=== PATIENT | male | born 1950 | race Caucasian/White ===

== ENCOUNTER 2016-10-02 07:41 | Outpatient (CLI) | payer MEDICARE, OTHER ==
[2016-10-02 10:55] LABS: PSA FREE 0.5 ng/mL (0.16-2.81); PSA TOTAL 1.4 ng/mL (0.000-2.000)
[2016-10-02 11:05] LABS: ALBUMIN/GLOBULIN RATIO 1.3 (1.0-2.2); BILIRUBIN,TOTAL 0.8 mg/dL (0.2-1.0); BUN - BLOOD UREA NITROGEN 16 mg/dL (6-20); CALCIUM 9.8 mg/dL (8.5-10.3); CARBON DIOXIDE - CO2 28 mmol/L (21-32); CHLORIDE 102 mmol/L (101-111); CHOL/HDL RATIO 4.9 (<5.0); CHOLESTEROL 212 mg/dL; CREATININE 0.9 mg/dL (0.6-1.2); GFR - MDRD 84 (>89); GLUCOSE 94 mg/dL (70-100); HDL CHOLESTEROL 43 mg/dL; LDL/HDL RATIO 3.1 (<3.6); POTASSIUM 4.3 mmol/L (3.5-5.0); SODIUM 137 mmol/L (135-145); TOTAL PROTEIN 8.1 g/dL (6.7-8.2); TRIGLYCERIDES 177 mg/dL; VLDL CHOLESTEROL 35 mg/dL
== END 2016-10-02 23:59 ==
LOC: LAB.R 07:41
PROVIDERS: ATTEND Internal Medicine
DX: N40.2 Nodular prostate without lower urinary tract symptoms (principal); K21.9 Gastro-esophageal reflux disease without esophagitis; E78.2 Mixed hyperlipidemia; Z79.899 Other long term (current) drug therapy
CPT/HCPCS: 80053; 80061; 84154; 84443; 85025

== ENCOUNTER 2016-10-03 13:22 | Outpatient (CLI) | payer MEDICARE, OTHER ==
[2016-10-03 13:49] LABS: BASOPHILS % (AUTO) 0.4 %; EOSINOPHILS # (AUTO) 0.1 10^3/uL (0.0-0.7); EOSINOPHILS % (AUTO) 1.6 %; HCT - HEMATOCRIT 48.4 % (42.0-52.0); HGB - HEMOGLOBIN 16.5 g/dL (14.0-18.0); LYMPHOCYTES # (AUTO) 2.1 10^3/uL (1.5-3.5); LYMPHOCYTES % (AUTO) 28.1 %; MEAN CORPUSCULAR HEMOGLOBIN 29.9 pg (27.0-31.0); MEAN CORPUSCULAR HGB CONC 34.2 g/dL (32.0-36.0); MEAN CORPUSCULAR VOLUME 87.6 fL (80.0-94.0); MEAN PLATELET VOLUME 7.7 fL (7.4-11.4); MONOCYTES # (AUTO) 0.4 10^3/uL (0.0-1.0); MONOCYTES % (AUTO) 5.8 %; NEUTROPHILS # (AUTO) 4.8 10^3/uL (1.5-6.6); NEUTROPHILS % (AUTO) 64.1 %; RED BLOOD COUNT 5.53 10^6/uL (4.70-6.10); RED CELL DISTRIBUTION WIDTH 13.2 % (12.0-15.0); UNCORRECTED WHITE BLOOD COUNT 7.4 x10^3/uL; WHITE BLOOD COUNT 7.4 x10^3/uL (4.8-10.8)
== END 2016-10-03 13:23 | disposition home or self-care (01) ==
LOC: LAB 13:22
PROVIDERS: ATTEND Internal Medicine
DX: N40.2 Nodular prostate without lower urinary tract symptoms (principal); E78.2 Mixed hyperlipidemia; K21.9 Gastro-esophageal reflux disease without esophagitis; Z79.899 Other long term (current) drug therapy
CPT/HCPCS: 36415; 85025

== ENCOUNTER 2020-07-07 08:51 | Outpatient (CLI) | payer MEDICARE, OTHER ==
--- NOTE | 2020-07-07 11:07 | CT Report ---
PROCEDURE: Low Dose Lung Cancer Screen INDICATIONS: HX OF SMOKING TECHNIQUE: Noncontrast low-dose 5 mm thick sections acquired from the pulmonary apices to the posterior costophr enic angles. 7 mm thick coronal and sagittal MIP reformats were then acquired. For radiation dose r eduction, the following was used: automated exposure control, adjustment of mA and/or kV according t o patient size. COMPARISON: None. FINDINGS: Image quality: Excellent. Lungs and pleura: There are two subpleural nodules in the posterior right upper lobe (series 4 image 114), measuring 5-7 mm. The smaller of these is partially calcified superiorly. No other pulmonary n odule or mass demonstrated. Pleural spaces are clear. Mediastinum: Normal heart size. No pericardial effusion. There is also coronary atherosclerosis. Smal l hiatal hernia with patulous esophagus. No threshold enlarged mediastinal or hilar lymph node. Brittnee l caliber thoracic aorta and minimal biliary trunk. Bones and chest wall: No suspicious lytic or blastic osseous lesion in the chest wall. No threshold e nlarged axillary or supraclavicular lymph node in the [id number]. Abdomen: Visualized upper abdomen solid organs and bowel loops appear normal in the absence of contr ast. IMPRESSION: Two small subpleural nodules in the posterior right upper lobe. Follow-up in 12 months to coincide th the annual of the screening CT of the chest is recommended. Reviewed by: Teto Sandoval MD on 07/07/2020 11:05 AM PDT Approved by: Teto Sandoval MD on 07/07/2020 11:05 AM PDT Station ID: [id number]
== END 2020-07-07 08:52 | disposition home or self-care (01) ==
LOC: DI 08:51
PROVIDERS: ATTEND Internal Medicine
DX: Z12.2 Encounter for screening for malignant neoplasm of respiratory organs (principal); R91.8 Other nonspecific abnormal finding of lung field; Z87.891 Personal history of nicotine dependence

== ENCOUNTER 2020-07-10 08:48 | Outpatient (CLI) | payer MEDICARE, OTHER | END 2020-07-10 08:49 | disposition home or self-care (01) | LOC: RT 08:48 | PROVIDERS: ATTEND Internal Medicine | DX: R06.02 Shortness of breath (principal) | CPT/HCPCS: 94010 ==

== ENCOUNTER 2020-07-18 09:50 | Emergency (ER) | payer MEDICARE, OTHER ==
[2020-07-18 09:59] VITALS: BP 159/119
[2020-07-18] MEDS ORDERED: KETOROLAC 60 MG/2 ML VIAL IM STA (10:50)
[2020-07-18] MEDS ORDERED: DEXAMETHASONE 10 MG/ML VIAL IM STA (10:50)
[2020-07-18] MEDS ORDERED: HYDROmorphone 1 MG/ML CARPUJECT IM STA (10:50)
--- NOTE | 2020-07-18 12:02 | ED Physician Documentation ---
History of Present Illness - Stated complaint Stated Complaint: BACK PX - Chief complaint Chief Complaint: Back Pain - History obtained from History obtained from: Patient - Additonal information Additional information: Patient comes emergency department chief complaint of low back pain after doing some work on his house few days ago. Patient states he has a longstanding history of back issues, but that he thinks he overdid it and that his back is irritated because of this. Patient denies any current weakness or numbness or tingling in his lower extremities. He states the first day he did have some degree of numbness of the lower extremities but had good control of his bowels and bladder. The patient was not too concerned about it at that time. Patient denies any fevers or chills. No urinary symptoms. He states that he normally takes naproxen for his low back pain and does plenty of stretching and exercise, and that this manages his pain pretty well. However, he states that the na proxen is not helping this time. Patient denies any other complaints at this time. Review of Systems Ten Systems: 10 systems reviewed and negative Constitutional: reports: Reviewed and negative Eyes: reports: Reviewed and negative Ears: reports: Reviewed and negative Nose: reports: Reviewed and negative Throat: reports: Reviewed and negative Cardiac: reports: Reviewed and negative Respiratory: reports: Reviewed and negative GI: reports: Reviewed and negative : reports: Reviewed and negative Skin: reports: Reviewed and negative Musculoskeletal: reports: Back pain Neurologic: reports: Reviewed and negative Psychiatric: reports: Reviewed and negative Endocrine: reports: Reviewed and negative Immunocompromised: reports: Reviewed and negative PD PAST MEDICAL HISTORY - Present Medications Home Medications: Ambulatory Orders Medication Instructions Recorded Confirmed Aspirin [Aspirin EC] 81 mg PO DAILY 07/18/20 07/18/20 Cyclobenzaprine [Flexeril] 10 mg PO TID PRN 6 Days #20 tablet 07/18/20 Fluticasone [Flonase] 2 sprays ESEQUIEL DAILY 07/18/20 07/18/20 HYDROcod/ACETAM 5/325 [[place] 5/325] 1 - 2 tablet PO Q6H PRN #14 tablet 07/18/20 Loratadine [Claritin] 10 mg PO DAILY 07/18/20 07/18/20 Rabeprazole Sodium [Aciphex] 40 mg ORAL DAILY 07/18/20 07/18/20 Simvastatin [Zocor] 10 mg PO HS 07/18/20 07/18/20 Tamsulosin HCl [Flomax] 0.8 mg PO HS 07/18/20 07/18/20 amLODIPine [Norvasc] 5 mg PO DAILY 07/18/20 07/18/20 - Allergies Allergies/Adverse Reactions: Allergies Allergy/AdvReac Type Severity Reaction Status Date / Time coconut Allergy Anaphylaxis Verified 07/18/20 09:55 codeine Allergy Anaphylaxis Verified 07/18/20 09:55 morphine Allergy Anaphylaxis Verified 07/18/20 09:55 - Social History Does the pt smoke?: No Smoking Status: Never smoker PD ED PE NORMAL - Vitals Vital signs reviewed: Yes - General General: Alert and oriented X 3, No acute distress - HEENT HEENT: Atraumatic, PERRL, EOMI, Moist mucous membranes - Neck Neck: Supple, no meningeal sign - Cardiac Cardiac: RRR, No murmur - Respiratory Respiratory: No respiratory distress, Clear bilaterally - Abdomen Abdomen: Soft, Non tender, Non distended - Back Back: No CVA TTP, Other (Patient has diffuse tenderness throughout his right lumbar paraspinal musculature. He has some tenderness over the L4 2 through 5 distribution of his spine. No step-off or deformity.) - Derm Derm: Normal color, Warm and dry, No rash - Extremities Extremities: No deformity, No edema, No calf tenderness / cord - Neuro Neuro: Alert and oriented X 3, curb worker 2-12 intact, No motor deficit, No sensory deficit, Normal speech - Psych Psych: Normal mood, Normal affect Results - Vitals Vitals: Vital Signs - 24 hr 07/18/20 09:56 Temperature 36.1 C L Heart Rate 72 Respiratory 18 Rate Blood Pressure 159/119 H O2 Saturation 99 Oxygen O2 Source Room air PD MEDICAL DECISION MAKING - ED course Complexity details: considered differential, d/w patient ED course: Patient was treated symptomatically in the emergency department with IM Toradol, Dilaudid, and Decadron. He reported history of anaphylaxis with morphine, but did not have any adverse effects with the Dilaudid. The patient reported feeling somewhat better. I did not find any evidence of an emergent condition associated with the patient's back pain, and the patient had not had any worrisome trauma. We have discussed home management of the symptoms, the potential need for follow-up, and the usual indications for return. Departure - Departure Disposition: 01 Home, Self Care Clinical Impression: Back pain Qualifiers: Back pain location: low back pain Chronicity: acute Back pain laterality: right Sciatica presence: without sciatica Qualified Code(s): M54.5 - Low back pain Condition: Stable Instructions: ED Neck Back Pain General Prescriptions: Cyclobenzaprine [Flexeril] 10 mg PO TID PRN 6 Days #20 tablet PRN Reason: Spasms HYDROcod/ACETAM 5/325 [[place] 5/325] 1 - 2 tablet PO Q6H PRN #14 tablet PRN Reason: Pain
--- OUTSIDE RECORDS SUMMARY | 2020-07-19 03:21 | EXTERNAL MEDICAL SUMMARY RPT | Continuity of Care Document ---
:1950 Demographics Phone Unavailable Preferred Language Unknown Marital Status Unknown Yarsani Affiliation Unknown Race Unknown Ethnic Group Unknown Author Organization [facility] Address [address] [place] [address] Phone Social History date description facility [phone]
== END 2020-07-18 12:12 | disposition home or self-care (01) ==
LOC: ED 09:50
DX: M54.5 Low back pain (principal); Z88.5 Allergy status to narcotic agent; Z79.82 Long term (current) use of aspirin
CPT/HCPCS: 96372; 99283; 99284; J1170

== ENCOUNTER 2020-07-28 08:30 | Outpatient (CLI) | payer MEDICARE, OTHER ==
[2020-07-28 08:51] LABS: BASOPHILS # (AUTO) 0.1 10^3/uL (0.0-0.1); BASOPHILS % (AUTO) 0.9 %; EOSINOPHILS # (AUTO) 0.2 10^3/uL (0.0-0.7); EOSINOPHILS % (AUTO) 2.6 %; HCT - HEMATOCRIT 49.8 % (42.0-52.0); HGB - HEMOGLOBIN 16.4 g/dL (14.0-18.0); LYMPHOCYTES # (AUTO) 2.4 10^3/uL (1.5-3.5); MEAN CORPUSCULAR HGB CONC 32.9 g/dL (32.0-36.0); MEAN PLATELET VOLUME 9.7 fL (7.4-11.4); MONOCYTES # (AUTO) 0.4 10^3/uL (0.0-1.0); MONOCYTES % (AUTO) 6.5 %; NEUTROPHILS # (AUTO) 2.8 10^3/uL (1.5-6.6); NEUTROPHILS % (AUTO) 47.8 %; PLT - PLATELET COUNT 220 10^3/uL (130-450); RED BLOOD COUNT 5.47 10^6/uL (4.70-6.10); RED CELL DISTRIBUTION WIDTH 13.2 % (12.0-15.0); WHITE BLOOD COUNT 5.8 x10^3/uL (4.8-10.8)
[2020-07-28 09:09] LABS: ALBUMIN 4.6 g/dL (3.2-5.5); ALBUMIN/GLOBULIN RATIO 1.2 (1.0-2.2); ALKALINE PHOSPHATASE 52 IU/L (42-121); ALT ALANINE AMINOTRANSFERASE 19 IU/L (10-60); AST ASPARTATE AMINOTRANSFERASE 22 IU/L (10-42); BILIRUBIN,TOTAL 0.9 mg/dL (0.2-1.0); BUN - BLOOD UREA NITROGEN 16 mg/dL (6-20); CALCIUM 9.7 mg/dL (8.5-10.3); CARBON DIOXIDE - CO2 24 mmol/L (21-32); CHLORIDE 105 mmol/L (101-111); CHOL/HDL RATIO 4.3 (<5.0); CHOLESTEROL 165 mg/dL; CREATININE 0.9 mg/dL (0.6-1.2); GAMMA GLUTAMYL TRANSPEPTIDASE 15 IU/L (8-55); GFR - MDRD 83 (>89); GLUCOSE 109 mg/dL (70-100); HDL CHOLESTEROL 38 mg/dL; LDL CHOLESTEROL,CALCULATED 107 mg/dL; LDL/HDL RATIO 2.8 (<3.6); SODIUM 138 mmol/L (135-145); TOTAL PROTEIN 8.4 g/dL (6.7-8.2); TRIGLYCERIDES 99 mg/dL; VLDL CHOLESTEROL 20 mg/dL
== END 2020-07-28 08:31 | disposition home or self-care (01) ==
LOC: LAB 08:30
PROVIDERS: ATTEND Internal Medicine
DX: K76.0 Fatty (change of) liver, not elsewhere classified (principal); Z79.899 Other long term (current) drug therapy; Z12.5 Encounter for screening for malignant neoplasm of prostate
CPT/HCPCS: 36415; 80053; 80061; 82977; 85025; G0103; 83721; 84153

== ENCOUNTER 2020-09-28 07:00 | Outpatient (CLI) | payer MEDICARE, OTHER ==
[2020-09-28 15:42] LABS: BASOPHILS % (AUTO) 0.5 %; EOSINOPHILS # (AUTO) 0.1 10^3/uL (0.0-0.7); EOSINOPHILS % (AUTO) 1.4 %; HCT - HEMATOCRIT 45.5 % (42.0-52.0); HGB - HEMOGLOBIN 15.1 g/dL (14.0-18.0); LYMPHOCYTES # (AUTO) 1.9 10^3/uL (1.5-3.5); LYMPHOCYTES % (AUTO) 23.7 %; MEAN CORPUSCULAR HEMOGLOBIN 30.4 pg (27.0-31.0); MEAN CORPUSCULAR HGB CONC 33.2 g/dL (32.0-36.0); MEAN CORPUSCULAR VOLUME 91.7 fL (80.0-94.0); MEAN PLATELET VOLUME 9.6 fL (7.4-11.4); MONOCYTES # (AUTO) 0.5 10^3/uL (0.0-1.0); MONOCYTES % (AUTO) 6.3 %; NEUTROPHILS # (AUTO) 5.5 10^3/uL (1.5-6.6); NEUTROPHILS % (AUTO) 67.7 %; PLT - PLATELET COUNT 223 10^3/uL (130-450); RED BLOOD COUNT 4.96 10^6/uL (4.70-6.10); RED CELL DISTRIBUTION WIDTH 13.4 % (12.0-15.0); WHITE BLOOD COUNT 8.1 x10^3/uL (4.8-10.8)
[2020-09-28 15:49] LABS: INR 1.4 (0.8-1.2); PT - PROTHROMBIN TIME 14.9 secs (9.9-12.6)
[2020-09-28 15:52] LABS: CALCIUM 9.4 mg/dL (8.5-10.3); CREATININE 1.1 mg/dL (0.6-1.2); POTASSIUM 4.1 mmol/L (3.5-5.0)
== END 2020-09-28 23:59 | disposition home or self-care (01) ==
LOC: LAB 07:00
PROVIDERS: ATTEND Internal Medicine Cardiovascular Disease
DX: R07.89 Other chest pain (principal); R53.83 Other fatigue; I10 Essential (primary) hypertension; E78.49 Other hyperlipidemia; R94.31 Abnormal electrocardiogram [ECG] [EKG]; R06.09 Other forms of dyspnea
CPT/HCPCS: 36415; 80048; 85025; 85610

== ENCOUNTER 2020-09-28 14:57 | Outpatient (CLI) | payer MEDICARE, OTHER | END 2020-09-28 14:58 | disposition home or self-care (01) | LOC: RT 14:57 | PROVIDERS: ATTEND Internal Medicine Cardiovascular Disease | DX: R07.89 Other chest pain (principal); R06.09 Other forms of dyspnea; I10 Essential (primary) hypertension; E78.49 Other hyperlipidemia; R94.31 Abnormal electrocardiogram [ECG] [EKG]; R53.83 Other fatigue | CPT/HCPCS: 36415; 80048; 85025; 85610; 93005 ==

== ENCOUNTER 2021-01-29 13:26 | Emergency (ER) | payer MEDICARE, OTHER ==
[2021-01-29 13:38] VITALS: BP 133/70
[2021-01-29] MEDS ORDERED: PROPARACAINE 0.5% OPHTH DROPS 15 ML LEFTEYE STA (13:52)
--- NOTE | 2021-01-29 14:04 | ED Physician Documentation ---
PD HPI OPHTHO - Stated complaint Stated Complaint: L EYE INJURY - Chief complaint Chief Complaint: Heent - History obtained from History obtained from: Patient - History of Present Illness Timing - onset: Today Timing - duration: Hours Timing - details: Abrupt onset, Still present Location: Left Quality / character: Itching, Sharp Associated symptoms: Redness, Tearing, FB sensation Contributing factors: FB Similar symptoms before: Has not had sx before Recently seen: Not recently seen - Additional information Additional information: 70-year-old male was out trimming his pena bushes when he turned around quickly and a branch snapped him right in the left eye. He has a foreign body sensation and some distortion of his vision associated with this. He does not have any bleeding or oozing he does have good peripheral vision. Patient has not been ill recently. Review of Systems Constitutional: denies: Fever Eyes: reports: Photophobia, Irritation, Other (fb sensation). denies: Loss of vision, Decreased vision, Discharge Ears: denies: Ear pain Nose: denies: Congestion Throat: denies: Sore throat Respiratory: denies: Cough GI: denies: Vomiting PD PAST MEDICAL HISTORY - Present Medications Home Medications: Ambulatory Orders Medication Instructions Recorded Confirmed Aspirin [Aspirin EC] 81 mg PO DAILY 07/18/20 07/18/20 Cyclobenzaprine [Flexeril] 10 mg PO TID PRN 6 Days #20 tablet 07/18/20 Fluticasone [Flonase] 2 sprays ESEQUIEL DAILY 07/18/20 07/18/20 HYDROcod/ACETAM 5/325 [[place] 5/325] 1 - 2 tablet PO Q6H PRN #14 tablet 07/18/20 Loratadine [Claritin] 10 mg PO DAILY 07/18/20 07/18/20 Rabeprazole Sodium [Aciphex] 40 mg ORAL DAILY 07/18/20 07/18/20 Simvastatin [Zocor] 10 mg PO HS 07/18/20 07/18/20 Tamsulosin HCl [Flomax] 0.8 mg PO HS 07/18/20 07/18/20 amLODIPine [Norvasc] 5 mg PO DAILY 07/18/20 07/18/20 Neomycin/Poly/Dex Ophth Drops 1 drops LEFTEYE QID #5 ml 01/29/21 [Maxitrol Ophth Drops] - Allergies Allergies/Adverse Reactions: Allergies Allergy/AdvReac Type Severity Reaction Status Date / Time coconut Allergy Anaphylaxis Verified 01/29/21 13:38 codeine Allergy Anaphylaxis Verified 01/29/21 13:38 morphine Allergy Anaphylaxis Verified 01/29/21 13:38 - Social History Does the pt smoke?: No Smoking Status: Never smoker PD ED PE NORMAL - Vitals Vital signs reviewed: Yes (Hypertensive) - General General: Alert and oriented X 3, No acute distress, Well developed/nourished - HEENT HEENT: Atraumatic, PERRL, EOMI, Other (Examination of the left eye shows a symmetric pupil no evidence of a hyphema and no evidence of vitreous extrusion. With fluorescein staining there is evidence of obvious corneal abrasion in the upper outer quadrant.) - Respiratory Respiratory: No respiratory distress - Derm Derm: Normal color, Warm and dry, No rash - Extremities Extremities: No deformity, No edema - Neuro Neuro: Alert and oriented X 3, bundle wrapper 2-12 intact, No motor deficit, No sensory deficit, Normal speech Eye Opening: Spontaneous Motor: Obeys Commands Verbal: Oriented GCS Score: 15 - Psych Psych: Normal mood, Normal affect Results - Vitals Vitals: Vital Signs - 24 hr 01/29/21 13:34 Temperature 37.0 C Heart Rate 80 Respiratory 14 Rate Blood Pressure 133/70 H O2 Saturation 98 Oxygen O2 Source Room air PD MEDICAL DECISION MAKING - ED course Complexity details: considered differential, d/w patient ED course: 70-year-old male with trauma to the eye and foreign body does not appear to have a rupture to his oral or laceration of the sclera. He does appear to have significant corneal abrasion. We will place the patient on a course of Maxitrol and asked him to follow-up with the jigsaw operator if he is not resolving his symptoms within 2 days. Departure - Departure Disposition: 01 Home, Self Care Clinical Impression: Corneal abrasion, left Qualifiers: Encounter type: initial encounter Qualified Code(s): S05.02XA - Injury of conjunctiva and corneal abrasion without foreign body, left eye, initial encounter Condition: Stable Instructions: ED Eye Injury Corneal Abrasion Follow-Up: ESEQUIEL Justin [Provider Group] Vern Jarquin MD [Provider Admit Priv/Credential] - Prescriptions: Neomycin/Poly/Dex Ophth Drops [Maxitrol Ophth Drops] 1 drops LEFTEYE QID #5 ml Discharge Date/Time: 01/29/21 14:16
== END 2021-01-29 14:16 | disposition home or self-care (01) ==
LOC: ED 13:26
DX: S05.02XA Injury of conjunctiva and corneal abrasion without foreign body, left eye, initial encounter (principal); W22.8XXA Striking against or struck by other objects, initial encounter; Y93.H2 Activity, gardening and landscaping; Z79.82 Long term (current) use of aspirin
CPT/HCPCS: 99282; 99284; J3490

== ENCOUNTER 2021-05-24 09:36 | Outpatient (CLI) | payer MEDICARE, OTHER ==
[2021-05-24 09:53] LABS: BASOPHILS % (AUTO) 0.5 %; EOSINOPHILS # (AUTO) 0.1 10^3/uL (0.0-0.7); EOSINOPHILS % (AUTO) 1.9 %; HGB - HEMOGLOBIN 16.7 g/dL (14.0-18.0); LYMPHOCYTES # (AUTO) 2.4 10^3/uL (1.5-3.5); LYMPHOCYTES % (AUTO) 32.6 %; MEAN CORPUSCULAR HEMOGLOBIN 29.8 pg (27.0-31.0); MEAN CORPUSCULAR HGB CONC 32.7 g/dL (32.0-36.0); MEAN CORPUSCULAR VOLUME 90.9 fL (80.0-94.0); MEAN PLATELET VOLUME 9.7 fL (7.4-11.4); MONOCYTES # (AUTO) 0.4 10^3/uL (0.0-1.0); MONOCYTES % (AUTO) 5.9 %; NEUTROPHILS # (AUTO) 4.4 10^3/uL (1.5-6.6); NEUTROPHILS % (AUTO) 58.6 %; PLT - PLATELET COUNT 226 10^3/uL (130-450); RED BLOOD COUNT 5.61 10^6/uL (4.70-6.10); RED CELL DISTRIBUTION WIDTH 12.8 % (12.0-15.0); WHITE BLOOD COUNT 7.5 x10^3/uL (4.8-10.8)
[2021-05-24 10:08] LABS: ALBUMIN 4.4 g/dL (3.2-5.5); ALBUMIN/GLOBULIN RATIO 1.1 (1.0-2.2); ALKALINE PHOSPHATASE 38 IU/L (42-121); ALT ALANINE AMINOTRANSFERASE 19 IU/L (10-60); AST ASPARTATE AMINOTRANSFERASE 18 IU/L (10-42); BILIRUBIN,TOTAL 1.1 mg/dL (0.2-1.0); BUN - BLOOD UREA NITROGEN 20 mg/dL (6-20); CALCIUM 9.7 mg/dL (8.5-10.3); CARBON DIOXIDE - CO2 29 mmol/L (21-32); CHLORIDE 101 mmol/L (101-111); CHOL/HDL RATIO 3.8 (<5.0); CHOLESTEROL 160 mg/dL; CREATININE 1.1 mg/dL (0.6-1.2); GFR - MDRD 66 (>89); GLUCOSE 109 mg/dL (70-100); HDL CHOLESTEROL 42 mg/dL; LDL CHOLESTEROL,CALCULATED 96 mg/dL; LDL/HDL RATIO 2.3 (<3.6); POTASSIUM 4.6 mmol/L (3.5-5.0); SODIUM 138 mmol/L (135-145); TOTAL PROTEIN 8.3 g/dL (6.7-8.2); TRIGLYCERIDES 108 mg/dL; VLDL CHOLESTEROL 22 mg/dL
== END 2021-05-24 09:37 | disposition home or self-care (01) ==
LOC: LAB 09:36
PROVIDERS: ATTEND Internal Medicine
DX: E78.5 Hyperlipidemia, unspecified (principal); Z79.899 Other long term (current) drug therapy
CPT/HCPCS: 36415; 80053; 80061; 83721; 85025

== ENCOUNTER 2021-06-01 08:00 | Outpatient (CLI) | payer MEDICARE, OTHER ==
[2021-06-01] MEDS ORDERED: IOVERSOL 320 100 ML VIAL IVP ONE ×2 (08:12→20:04)
--- NOTE | 2021-06-02 10:04 | CT Report ---
PROCEDURE: CHEST W INDICATIONS: MULTIPLE NODULES CONTRAST: IV CONTRAST: Optiray 320 ml: 100 PO CONTRAST: *NO PO CONTRAST TECHNIQUE: After the administration of intravenous contrast, 1 mm axial images were acquired from the pulmonary apices through the posterior costophrenic angles. Axial 5 mm soft tissue kernel reconstructions were performed as well as 8 mm axial MIP and coronal and sagittal 5 mm reformations. For radiation dose reduction, the following was used: automated exposure control, adjustment of mA and/or kV according to patient size. COMPARISON: 07/07/2020 FINDINGS: Image quality: Excellent. Lungs and pleura: Within the right upper lobe posteriorly, to subpleural nodules are again seen, as on series 4 images 95 and 99, measuring 4 mm and 7 mm. These are unchanged compared to the 07/07/2020 examination. No new pulmonary nodules are seen. No acute air space opacities. No pleural effusions or pneumothorax. Central and peripheral airways are patent and normal in caliber. Mediastinum: Heart size is normal. Moderate coronary artery calcification is seen. No pericardial ef fusion. No mediastinal or hilar adenopathy by size criteria. Thoracic aorta and central pulmonary a rteries are normal in size. Esophagus is normal in caliber. There is a small to moderate hiatal rom ia. Bones and chest wall: No suspicious bony lesions. No vertebral body compression fractures. No axil surinder or supraclavicular adenopathy by size criteria. The thyroid is normal in size and there are no incidental findings.. Abdomen: Cholecystectomy clips are seen. Anterior abdominal wall mesh placement is partially seen, a s on series 3 image 69. The visualized portions of the upper abdominal structures are otherwise withi n normal limits. IMPRESSION: There are 2 stable subpleural nodules seen within the posterior aspect of the right upper lobe, which are unchanged compared to the examination dated 07/07/2020. No new pulmonary nodules are seen. Recommend annual low-dose CT chest screening examinations, as long as the patient meets the published screening criteria. Incidental note is made of: Moderate coronary artery calcification Small to moderate hiatal hernia Cholecystectomy Upper abdominal wall mesh placement Reviewed by: Dereck James MD on 06/02/2021 9:03 AM [facility] Approved by: Dereck James MD on 06/02/2021 9:03 AM [facility] Station ID: [id number]
== END 2021-06-01 08:01 | disposition home or self-care (01) ==
LOC: DI 08:00
PROVIDERS: ATTEND Internal Medicine
DX: R91.8 Other nonspecific abnormal finding of lung field (principal)
CPT/HCPCS: 71260; Q9967

== ENCOUNTER 2022-01-04 08:58 | Outpatient (CLI) | payer MEDICARE, OTHER ==
[2022-01-04 09:12] LABS: BASOPHILS % (AUTO) 0.5 %; EOSINOPHILS # (AUTO) 0.4 10^3/uL (0.0-0.7); EOSINOPHILS % (AUTO) 4.5 %; HCT - HEMATOCRIT 48.5 % (42.0-52.0); HGB - HEMOGLOBIN 16.1 g/dL (14.0-18.0); LYMPHOCYTES # (AUTO) 2.2 10^3/uL (1.5-3.5); LYMPHOCYTES % (AUTO) 27.3 %; MEAN CORPUSCULAR HEMOGLOBIN 29.9 pg (27.0-31.0); MEAN CORPUSCULAR HGB CONC 33.2 g/dL (32.0-36.0); MEAN PLATELET VOLUME 9.5 fL (7.4-11.4); MONOCYTES # (AUTO) 0.5 10^3/uL (0.0-1.0); MONOCYTES % (AUTO) 6.8 %; NEUTROPHILS # (AUTO) 4.8 10^3/uL (1.5-6.6); NEUTROPHILS % (AUTO) 60.5 %; PLT - PLATELET COUNT 237 10^3/uL (130-450); RED BLOOD COUNT 5.39 10^6/uL (4.70-6.10); RED CELL DISTRIBUTION WIDTH 13.4 % (12.0-15.0); WHITE BLOOD COUNT 7.9 x10^3/uL (4.8-10.8)
[2022-01-04 09:30] LABS: ALBUMIN 4.3 g/dL (3.2-5.5); ALBUMIN/GLOBULIN RATIO 1.2 (1.0-2.2); BILIRUBIN,TOTAL 0.7 mg/dL (0.2-1.0); CALCIUM 9.9 mg/dL (8.5-10.3); POTASSIUM 4.5 mmol/L (3.5-5.0)
== END 2022-01-04 08:59 | disposition home or self-care (01) ==
LOC: LAB 08:58
PROVIDERS: ATTEND Podiatrist
DX: B35.1 Tinea unguium (principal)
CPT/HCPCS: 36415; 80053; 85025

== ENCOUNTER 2022-02-19 10:34 | Outpatient (CLI) | payer MEDICARE, OTHER ==
--- NOTE | 2022-02-19 11:39 | SLEEP CARE CONSULTATION ---
Information from patient questionnaire entered by Alton Fay. I have reviewed and concur with the information entered by Alton Fay. This document represents the service I personally performed and the decisions made by me, Karla Pelayo ARNP. History of Present Illness Service Date and Time: 02/19/2022 1034 Reason for Visit: New patient, Previously diagnosed sleep apnea, sleep apnea on CPAP therapy Chief Complaint: reports: Unrefreshed sleep, Snoring, Observed pauses in breathing, Fatigue, Other (UPDATE SUPLIES ) Date of Onset: 15-20 YEARS Usual bedtime: 830PM Time it takes to fall asleep: IMMIEDIATLEY Snores at night: Yes Observed to quit breathing while asleep: Yes Sleeps alone due to snoring: No Number of times waking at night: 1-2 Reasons for waking at night: reports: Bathroom, Other (UNKNOWN REASONS ) Toss, Turn, or Twitch while sleeping: Yes Recalls having dreams: Yes Usually gets out of bed at: 5-6AM Feels refreshed in the morning: No Morning headache: No Sleepy or fatigued during the day: Yes Ever fallen asleep while driving: No Takes day naps: Yes Dreams during day naps: No Prior sleep studies: Yes ([id number] [facility] NO RECORD AVAILABLE PRIVATE PRACTICED CLOSED ) Type of Sleep Study: Home sleep study Additional HPI information: I had the pleasure of seeing CHAITANYA CARDOZA today regarding the possibility of him having a sleep disorder. His current complaints are fatigue, observed pauses in breathing, snoring, unrefreshed sleep and update of supplies. He was previously diagnosed with sleep apnea and placed on a CPAP machine. He is using a travel machine [place] that he bought in 2017 because he has been traveling since 2016 and did not want to travel with bigger machine. He states he only uses the humidifier attachment during the winter. He has been having increasing incidence of daytime sleepiness and fatigue. He is not feeling as refreshed from sleep. He is also no longer traveling consecutively and would like a machine for home. He gets his supplies from [employer] online. - Parasomnia Symptoms Ever been unable to move upon waking from sleep: No Walks in sleep: No Talks in sleep: Yes Ever acted out dreams in sleep: Yes Ever felt weak in the knees when startled or emotional: No Bothered by creepy, crawly, restless sensations in legs: No Problems with memory or concentration: No CPAP Compliance Data - Data Reviewed with Patient Current pressure setting (cmH2O): 3-18 Compliance data discussion: He has a travel APAP APEX that he bought when he was in [place] with its pressure set at 3-18 cmH2O. We are unable to get any other information from his machine. He states that uses it every night (8-9 hours) and most of the time he has noted the pressure to be at 6 cmH2O when he wakes up but he has seen it as high as 16 cmH2O. He uses a Dreamwear hybrid fulll face mask, medium. Subjective Patient concerns: reports: dry mouth, nose, throat (does not use humidifier on regular basis, only during winter). denies: aerophagia, mask discomfort, air blowing in eyes, mask leak noise, condensation in mask/hose, nasal congestion, epistaxis Observed to snore while using device: No Current pressure setting perceived as: comfortable On therapy, patient: reports: sleeping better, awakening more refreshed, being more awake and alert during the day, more rested overall. denies: drowsiness while driving Initial Howell Sleepiness Scale score: 5 (02/19/2022) Past Medical History Past Medical History: reports: Hypertension, Claustrophobia, Arrythmia, Depression, GERD, Other (heart block 1degree; IBS) Social History The patient's occupation is a RE. Patient is and lives in . Have you smoked in the past 12 months: No Cigarettes per day (20/pack): 30 Years of smokin Quit date: 1999 Smoking Pack Years: 30.0 Alcohol use: Yes Alcohol amount and frequency: 1 DRINK EACH EVENING Caffeine use: Yes Caffeine amount and frequency: 1-2 CUPS DAILY Family History Family history of sleep disordered breathing: Yes Family Hx Sleep Apnea: Mother: Snoring, Father: Snoring, Sleep apnea - Treated, Sibling: Snoring, Grandparent: Snoring, Sleep apnea - Untreated Allergies and Home Medications Known drug allergies: Yes (CODIENE, MORPHINE, COCONUT ) Drug allergies reviewed: Yes (as listed in chart) Home medication list reviewed: Yes (as listed in chart) Review of Systems Weight gain over past 5 years: 60 Weight loss over past 5 years: 70 Cardiovascular: reports: chest pain, irregular heart rate or pulse, other (1% HEARTBLOCK) Gastrointestinal: reports: heartburn, diarrhea, abdominal pain Urinary: reports: frequency, urgency Neurological: reports: headaches Psychiatric: reports: depression, claustrophobia Musculoskeletal: reports: joint pain, back pain Immunologic: reports: sneezing, itching Physical Exam Vital signs obtained and entered by: ALTON Bowser MA Blood Pressure: 128/72 Heart Rate: 83 O2 Saturation: 97 Height: 6 ft 0.5 in Weight: 235 lb Body Mass Index: 31.4 BMI Classification: Obese Neck circumference: 18 Heart: regular rate and rhythm Lungs: clear bilaterally Impression and Plan 1. Suspected Obstructive Sleep Apnea-Hypopnea Syndrome, as previously diagnosed and as suggested by a history of loud and irregular snoring, observed cessation of breath while asleep and unrefreshed sleep. Patient was diagnosed back in 2015 but no record of his sleep study is available. He is having issues with daytime fatigue and is using a travel APAP that is set at 3-18 cmH2O. I was unable to obtain any further information on residual AHI or time of use. He states he uses it nightly, all night. I recommend proceeding to polysomnography to confirm the diagnosis and to assess severity. I obtained agreement to proceed. The pathophysiology of obstructive sleep apnea-hypopnea syndrome was discussed with the patient and health risks of cardiovascular and cerebrovascular disease if not treated. Risks of drowsy driving discussed in detail and patient advised to avoid long distance driving and to pulley mortiser operator at the first sign of drowsiness. Patient agreed to plan. * Schedule polysomnography * Continue APAP pressure at 3-18 cmH2O * Avoid long distance driving or driving when feeling sleepy. * Avoid alcohol, sedative and muscle relaxant around bedtime. * Attempt to lose weight. * Review instructions provided by trained office staff on how to prepare for the sleep study. * Return for follow-up after sleep study completed. Counseling Topics: Spare mask, Weight loss health impact Visit Type: In Office Time Spent with Patient (minutes): 35 Provider Statement: I spent 100% of the Face to Face Visit with the patient with greater than 50% spent counseling the patient and coordination of care.
[2022-02-19 11:40] VITALS: BP 128/72
== END 2022-02-19 10:35 | disposition home or self-care (01) ==
LOC: SC 10:34
PROVIDERS: ATTEND Nurse Practitioner Family
DX: G47.33 Obstructive sleep apnea (adult) (pediatric) (principal); Z87.891 Personal history of nicotine dependence; E66.9 Obesity, unspecified; Z68.31 Body mass index [BMI] 31.0-31.9, adult
CPT/HCPCS: 99203; G0463; 99212

== ENCOUNTER 2022-03-05 19:30 | Outpatient (CLI) | payer MEDICARE, OTHER | END 2022-03-05 19:31 | disposition home or self-care (01) | LOC: SC 19:30 | PROVIDERS: ATTEND Nurse Practitioner Family | DX: G47.33 Obstructive sleep apnea (adult) (pediatric) (principal); G47.61 Periodic limb movement disorder | CPT/HCPCS: 95810 ==

== ENCOUNTER 2022-04-05 15:36 | Outpatient (CLI) | payer MEDICARE, OTHER ==
--- NOTE | 2022-04-05 14:43 | SLEEP CARE CONSULTATION ---
Information from patient questionnaire entered by No Fisher MA. I have reviewed and concur with the information entered by No Fisher MA. This document represents the service I personally performed and the decisions made by , Karla Pelayo ARNP. History of Present Illness Service Date and Time: 04/05/2022 1420 Initial [place] Sleepiness Scale score: 5 (02/19/2022) Current [place] Sleepiness Scale score: 7 Additional HPI information: CHAITANYA CARDOZA returns via video telehealth visit for follow up and results of the recently performed polysomnography. I explained the pathophysiology behind obstructive sleep apnea. We then spent quite a bit of time discussing different treatment options. For mild obstructive sleep apnea, surgery and oral appliance are alternatives to nasal CPAP therapy but in moderate or severe cases, nasal CPAP is the most effective and reliable treatment. Because apnea is primarily in supine position, then positional management therapy could be effective. Methods discussed such as positioning with pillows to prevent supine sleep. I reviewed the impact of weight changes on sleep apnea and strongly recommended losing weight. Patient would like to continue the nasal CPAP therapy. Nasal autoCPAP set at 4-18 cmH20 will be ordered. Patient was cautioned about risks of drowsy driving until sleepiness symptoms resolve. Sleep Study - Results Type of Sleep Study: Home sleep study Prior sleep studies: Yes ( [facility] NO RECORD AVAILABLE PRIVATE PRACTICED CLOSED ) Polysomnography/Home Sleep Study results: IMPRESSION: The quality of the study is good. The patient had reduced sleep efficiency due to sleep onset insomnia and two prolonged awakenings during the night. The sleep architecture was abnormal for sleep fragmentation and reduced amount of time spent in REM and slow wave sleep (N3). Respiratory monitoring showed moderate obstructive sleep apnea-hypopnea (AHI = 21.5) associated with frequent arousals, oxyhemoglobin desaturation and mild hypoxia (angelica oxygen saturation of 86%). The respiratory events occurred mainly during supine sleep (supine AHI = 52.4; non-supine = 18.74). Snore was moderate to loud in intensity. There was severe periodic leg movement of sleep contributing to the sleep fragmentation. Cardiac rhythm was normal sinus rhythm without significant arrhythmia. No abnormal behavior (parasomnia) observed during the night. Allergies and Home Medications Drug allergies reviewed: Yes (codeine, morphine, coconut) Home medication list reviewed: Yes (no changes) Review of Systems Review of systems same as previous: Yes (no changes) Physical Exam Vital signs obtained and entered by: VIPUL Gay Height: 6 ft Weight: 225 lb Body Mass Index: 30.5 BMI Classification: Obese Impression and Plan 1. Obstructive Sleep Apnea-Hypopnea Syndrome, moderate, with lowest oxygen saturation of 86%. Obviously this is the cause of the patients symptoms of unrefreshed sleep, and excessive daytime sleepiness. Positive pressure therapy could benefit hypertension, arrhythmia, depression, gastric reflux and cardiac disease. As mentioned above, the patient will be continued on nasal autoCPAP therapy with pressure set at 4-18 cmH2O. Compliance guidelines also reviewed. A copy of compliance guidelines will be given for reference at check out. 2. Periodic limb movement, [severe], that did not fragment patients sleep. Periodic limb movement of sleep (PLMS) is characterized by episodes of repeti tive limb movements that occur during sleep and usually involve the lower limbs. The etiology is unknown. Caffeine can aggravate PLMS and should be avoided. Sleep hygiene methods can also improve sleep as well as lifestyle changes such as regular exercise. Patient was advised that no treatment is needed at this time. If symptoms increase, then further evaluation is indicated. * Nasal auto CPAP therapy, pressure at 4-18 cm H2O. * Attempt to lose weight. * Avoid alcohol consumption near bedtime. * The patient is again cautioned about driving until sleepiness completely resolves. * Return one month after new CPAP obtained. I will assess response to therapy and compliance at that time. Counseling Topics: Weight loss health impact Visit Type: Telehealth [facility] Patient Location: Home Location of Provider: Office Patient agrees and consents to this telehealth visit type: Yes Patient agrees to have their insurance billed: Yes Time Spent with Patient (minutes): 23 Provider Statement: I spent 100% of the Telehealth Video Call with the patient with greater than 50% spent counseling the patient and coordination of care.
== END 2022-04-05 15:37 | disposition home or self-care (01) ==
LOC: SC 15:36
PROVIDERS: ATTEND Nurse Practitioner Family
DX: G47.33 Obstructive sleep apnea (adult) (pediatric) (principal); G47.61 Periodic limb movement disorder; E66.9 Obesity, unspecified; Z68.30 Body mass index [BMI] 30.0-30.9, adult

== ENCOUNTER 2022-06-04 08:24 | Outpatient (CLI) | payer MEDICARE, OTHER ==
--- NOTE | 2022-06-04 08:49 | SLEEP CARE CONSULTATION ---
Information from patient questionnaire entered by Alton Fay. I have reviewed and concur with the information entered by Alton Fay. This document represents the service I personally performed and the decisions made by me, Karla Pelayo ARNP. History of Present Illness Service Date and Time: 06/04/2022 08 Previous diagnosis: Moderate, Obstructive Sleep Apnea-Hypopnea Syndrome AHI: 21.5 Reason for follow up: first compliance after device update Equipment type: CPAP (RESMED Airsense 10, 04/2022) Equipment obtained from: Other ([facility]; got supplies) Mask style: Nasal Mask brand: Respironics (Dreamwear) Backup mask available: Yes (old mask) Last cushion change: 2 weeks Prior sleep studies: Yes ( [employer] NO RECORD AVAILABLE PRIVATE PRACTICED CLOSED ) Type of Sleep Study: Home sleep study HPI additional information: CHAITANYA CARDOZA was diagnosed to have moderate, AHI 21.5, obstructive sleep apnea- hypopnea syndrome and returned today for CPAP therapy first compliance follow- up. Sleep Study - Results Type of Sleep Study: Home sleep study Prior sleep studies: Yes ( [employer] NO RECORD AVAILABLE PRIVATE PRACTICED CLOSED ) CPAP Compliance Data - Data Reviewed with Patient Average duration of nightly device use: 8 hours 52 minutes Compliance rate %: 98 (40/41 days used) Current pressure setting (cmH2O): 4-18 (avg 10.4, max 12.4) Average residual AHI: 4.8 Central apnea: 0.5 Obstructive apnea: 2.1 Subjective Patient concerns: denies: aerophagia, mask discomfort, air blowing in eyes, mask leak noise, condensation in mask/hose, nasal congestion, dry mouth, nose, throat, epistaxis Observed to snore while using device: No Current pressure setting perceived as: comfortable On therapy, patient: reports: sleeping better, awakening more refreshed, being more awake and alert during the day, more rested overall. denies: drowsiness while driving Initial [place] Sleepiness Scale score: 5 (02/19/2022) Current [place] Sleepiness Scale score: 7 (06/04/22) Allergies and Home Medications Drug allergies reviewed: Yes (as listed in EMR) Home medication list reviewed: Yes (increased Zoloft to 100 mg daily) Review of Systems Review of systems same as previous: Yes (no changes) Physical Exam Vital signs obtained and entered by: ALTON Bowser MA Blood Pressure: 124/80 (LEFT ARM) Cuff size: regular Heart Rate: 66 O2 Saturation: 96 Height: 6 ft Weight: 244 lb 12.8 oz Body Mass Index: 33.2 BMI Classification: Obese Impression and Plan 1. Obstructive Sleep Apnea-Hypopnea Syndrome, moderate, with good treatment compliance and good apnea control. On CPAP therapy, the patient has better sleep quality and is more rested overall. Patient is doing well with significant improvement of his sleep apnea. He really likes his new device. Patient's apnea severity and rationale for treatment to reduce apnea, improve sleep quality and reduce cardiovascular and cerebrovascular events was reviewed. I also reviewed the benefit of consistent device use of CPAP for hypertension, cardiac disease, arrhythmia, gastric reflux and depression. 2. Obesity, unspecified. Currently patients BMI is 33.2. Obesity increases the risk of apnea, CPAP pressure requirements and overall health risks especially cardiovascular and diabetes. Thus patient is advised to lose weight. * Change auto CPAP pressure to 10-12 cmH2O * Notify me if snoring with mask or feeling that the pressure is too much or too little * Attempt to lose weight * Call this office if any problems using CPAP * Return for follow up in 1 year, or sooner if concerns arise Counseling Topics: Spare mask, Weight loss health impact Visit Type: In Office Time Spent with Patient (minutes): 20 Provider Statement: I spent 100% of the Face to Face Visit with the patient with greater than 50% spent counseling the patient and coordination of care.
[2022-06-04 08:50] VITALS: BP 124/80
== END 2022-06-04 08:25 | disposition home or self-care (01) ==
LOC: SC 08:24
PROVIDERS: ATTEND Nurse Practitioner Family
DX: G47.33 Obstructive sleep apnea (adult) (pediatric) (principal); E66.9 Obesity, unspecified; Z68.33 Body mass index [BMI] 33.0-33.9, adult
CPT/HCPCS: 99213; G0463; 99212

== ENCOUNTER 2022-06-06 07:42 | Outpatient (CLI) | payer MEDICARE, OTHER ==
--- NOTE | 2022-06-06 10:16 | CT Report ---
PROCEDURE: CHEST WO INDICATIONS: MULTIPLE LUNG NODULES TECHNIQUE: Noncontrast 1mm axial images were acquired from the pulmonary apices to the posterior costophrenic an gles. Axial 5 mm soft tissue kernel reconstructions were performed as well as 8 mm axial MIP and cor onal and sagittal 5 mm reformations. For radiation dose reduction, the following was used: automate d exposure control, adjustment of mA and/or kV according to patient size. COMPARISON: 06/01/2021, 07/07/2020 FINDINGS: Image quality: Excellent. Lungs and pleura: 2 pleural-based right upper lobe lung nodules present on series 4 image 125 and 12 8 measuring 4 and 6 mm respectively, stable. A tiny triangular nodule is present in the lateral left lower lobe, 4/245, and a juxta fissural nodules present along the major fissure. There is a calcified granuloma in the subpleural lateral right lower lobe, 4/40. There are no new lung nodules. There is a small patchy parenchymal opacity in the lingula and small consolidation along the subpleural medial right middle lobe. Minor bronchial wall thickening extending towards the therapist. Central and francisco pheral airways are otherwise normal. No pleural effusions or pneumothorax. Mediastinum: Heart size is normal. Mild coronary artery calcification. No pericardial effusion. No mediastinal adenopathy by size criteria. Thoracic aorta and central pulmonary arteries are normal i n size. Esophagus is normal in caliber. No hiatal hernia. Bones and chest wall: No suspicious bony lesions. No vertebral body compression fractures. No axil surinder or supraclavicular adenopathy by size criteria. The thyroid is normal in size and there are no incidental findings. Abdomen: The visible upper abdomen demonstrates small cortical renal cysts and surgically absent gal lbladder. IMPRESSION: 1. Stable pleural-based right upper lobe lung nodules and other smaller granuloma and intraparenchyma l lymph nodes. These are benign given two-year stability. 2. No new pulmonary nodules. 3. Chronic medial right middle lobe atelectatic changes and small lingular opacity, potentially infec tious or inflammatory. Reviewed by: Lety Castellon MD on 06/06/2022 10:15 AM PST Approved by: Lety Castellon MD on 06/06/2022 10:15 AM PST Station ID: [id number]
== END 2022-06-06 07:43 | disposition home or self-care (01) ==
LOC: DI 07:42
PROVIDERS: ATTEND Nurse Practitioner Family
DX: R91.8 Other nonspecific abnormal finding of lung field (principal); J98.11 Atelectasis

== ENCOUNTER 2023-06-04 08:17 | Outpatient (CLI) | payer MEDICARE, OTHER ==
--- NOTE | 2023-06-04 08:47 | Sleep Patient Instructions ---
Sleep Center Visit Summary - Patient Visit Information Reason for Visit: Annual follow-up - Patient Instructions Additional Instructions: You will continue with CPAP therapy with pressure set at 10-12 cmH2O. A supply prescription will be updated with your DME. We encourage you to continue to try to lose weight. Please follow up with the sleep care office in 1 year. - Clinic Information Contact: [facility] [address] [place] [address] [email or web address] T: [phone]
--- NOTE | 2023-06-04 08:52 | SLEEP CARE CONSULTATION ---
Information from patient questionnaire entered by Alton Fay. I have reviewed and concur with the information entered by Alton Fay. This document represents the service I personally performed and the decisions made by me, Karla Pelayo ARNP. History of Present Illness Service Date and Time: 06/04/2023 08 Previous diagnosis: Moderate, Obstructive Sleep Apnea-Hypopnea Syndrome AHI: 21.5 Reason for follow up: annual (LAST SEEN 05/2022) Equipment type: CPAP (RESMED Airsense 10, s/u 04/2022 MACHINE NEEDED) Equipment obtained from: Other ([facility]; getting supplies) Mask style: Nasal Mask brand: Respironics (Dreamwear) Backup mask available: Yes Last cushion change: long time Prior sleep studies: Yes ( [employer] NO RECORD AVAILABLE PRIVATE PRACTICED CLOSED ) Type of Sleep Study: Home sleep study HPI additional information: CHAITANYA CARDOZA was diagnosed to have moderate, AHI 21.5, obstructive sleep apnea- hypopnea syndrome and returned today for CPAP therapy annual follow-up. Sleep Study - Results Type of Sleep Study: Home sleep study Prior sleep studies: Yes ( [employer] NO RECORD AVAILABLE PRIVATE PRACTICED CLOSED ) CPAP Compliance Data - Data Reviewed with Patient Average duration of nightly device use: 7 hours 49 minutes Compliance rate %: 82 (316/365 days used) Current pressure setting (cmH2O): 10-12 Average residual AHI: 2.6 Central apnea: 0.9 Obstructive apnea: 0.9 Hypopnea: 0.4 Average large leak: 4.9 L/min Compliance data discussion: He uses a travel machine when traveling. Subjective Missed days of use due to: reports: travel (uses travel CPAP) Patient concerns: reports: dry mouth, nose, throat (dry mouth/throat occasional; does not use humidifier). denies: aerophagia, mask discomfort, air blowing in eyes, mask leak noise, condensation in mask/hose, nasal congestion, epistaxis Observed to snore while using device: No Current pressure setting perceived as: comfortable On therapy, patient: reports: sleeping better, awakening more refreshed, being more awake and alert during the day, more rested overall. denies: drowsiness while driving Initial [place] Sleepiness Scale score: 5 (02/19/2022) Current [place] Sleepiness Scale score: 6 (06/04/23) Allergies and Home Medications Known drug allergies: Yes (as needed) Drug allergies reviewed: Yes Home medication list reviewed: Yes (Crestor, Aciphex, Zoloft, Wellbutrin) Allergy and home medication list: Allergies coconut Allergy (Verified 06/02/23 08:47) Anaphylaxis codeine Allergy (Verified 06/02/23 08:47) Anaphylaxis morphine Allergy (Verified 06/02/23 08:47) Anaphylaxis Review of Systems Review of systems same as previous: Yes (NO CHANGE) Physical Exam Vital signs obtained and entered by: ALTON Bowser MA Blood Pressure: 131/77 (LEFT ARM) Cuff size: regular Heart Rate: 71 O2 Saturation: 98 Height: 6 ft Weight: 218 lb 3.2 oz Weight change since last visit: 26 lb loss Body Mass Index: 29.5 BMI Classification: Overweight Impression and Plan 1. Obstructive Sleep Apnea-Hypopnea Syndrome, moderate, with good treatment compliance and good apnea control. On CPAP therapy, the patient has better sleep quality and is more rested overall. Patient has significant improvement of their sleep apnea and is satisfied with current CPAP therapy. Patient states he does not like to mess with the humidifier so he does not use it. He can get occasional dry mouth and throat. Patient denies problems with nasal congestion, epistaxis, skin irritation or aerophagia. Patient's apnea severity and rationale for treatment to reduce apnea, improve sleep quality and reduce cardiovascular and cerebrovascular events was reviewed. I also reviewed the benefit of consistent device use of CPAP for hypertension, cardiac disease, arrhythmia, diabetes, gastric reflux and depression. 2. Overweight, unspecified. Currently patients BMI is 29.5. He has lost weight, following Keto diet. Obesity increases the risk of apnea, CPAP pressure requirements and overall health risks especially cardiovascular and diabetes. Thus patient is advised to continue to try to lose weight. * Continue auto CPAP pressure at 10-12 cmH2O * Update supply prescription * Notify me if snoring with mask or feeling that the pressure is too much or too little * Attempt to lose weight * Call this office if any problems using CPAP * Return for follow up in 12 months, or sooner if concerns arise Counseling Topics: Spare mask, Weight loss health impact Prescriptions: Device supplies Follow up with Sleep Care in: 1 year Visit Type: In Office Time Spent with Patient (minutes): 22 Provider Statement: I spent 100% of the Face to Face Visit with the patient with greater than 50% spent counseling the patient and coordination of care.
[2023-06-04 08:54] VITALS: BP 131/77; O2SAT 98
== END 2023-06-04 08:18 | disposition home or self-care (01) ==
LOC: SC 08:17
PROVIDERS: ATTEND Nurse Practitioner Family
DX: G47.33 Obstructive sleep apnea (adult) (pediatric) (principal); E66.3 Overweight; Z68.29 Body mass index [BMI] 29.0-29.9, adult
CPT/HCPCS: 99213; G0463; 99212

== ENCOUNTER 2023-11-18 07:15 | Outpatient (CLI) | payer MEDICARE, OTHER ==
--- NOTE | 2023-11-18 15:38 | CT Report ---
PROCEDURE: Chest WO INDICATIONS: LUNG NODULES TECHNIQUE: A CT scan of the chest was performed. Intravenous contrast media was not administered. Images were re corded and evaluated at appropriate window settings. Reformats: axial MIP of the chest, coronal and s agittal. For radiation dose reduction, the following was used: automated exposure control, adjustment of mA and/or kV according to patient size. COMPARISON: Low-dose CT 07/07/2020, chest CT 06/01/2021, 06/06/2022. FINDINGS: Image quality: Diagnostic. Chest wall and lower neck: No thyroid nodule which requires sonographic follow up. No axillary or sup raclavicular adenopathy by size. Lungs and pleura: No consolidation. No pleural effusions. No pneumothorax. No suspicious pulmonary n odules which require follow up. Stable cystic lesion in the right upper lobe measuring 5 mm 34/4. Ri ght lower lobe juxtapleural nodules, benign again noted. Mediastinum: Heart size is normal. No pericardial effusion. No large vessel abnormality. No mediastin al adenopathy by size criteria. Dilated esophagus again noted. Bones: No aggressive osseous abnormality. Upper Abdomen: Cholecystectomy changes. IMPRESSION: Benign-appearing nodules and cystic lesion demonstrating stability since 2020 and 2021 respectively Reviewed by: Jarod Parkinson MD on 11/18/2023 3:37 PM PDT Approved by: Jarod Parkinson MD on 11/18/2023 3:37 PM PDT Station ID: [id number]
== END 2023-11-18 07:16 | disposition home or self-care (01) ==
LOC: DI 07:15
DX: R91.8 Other nonspecific abnormal finding of lung field (principal)